=== PATIENT | female | born 1960 ===

== ENCOUNTER 2019-10-06 21:58 | Emergency (ER) | payer OTHER ==
[2019-10-06] MEDS ORDERED: Lidocaine 1% 20 ML MDV ONE (22:07)
--- NOTE | 2019-10-06 22:45 | RAD ---
RIGHT HAND THREE VIEWS RIGHT WRIST THREE VIEWS: 10/06/19 HISTORY: Fall, right hand and wrist pain. FINDINGS/IMPRESSION: No acute fracture or dislocation is seen. If symptoms are not improved, follow-up exam with additional scaphoid views should be obtained in 7- 10 days. POS: OFF
[2019-10-06] MEDS ORDERED: Bacitracin 1 PK ONE (22:59)
[2019-10-06] MEDS ORDERED: Adacel (T-DAP) 0.5 ML SYRINGE ONE (23:10)
== END 2019-10-06 23:32 | disposition home or self-care (01) ==
LOC: SCSER 21:58
DX: S61.411A Laceration without foreign body of right hand, initial encounter (principal); Z23 Encounter for immunization; W18.30XA Fall on same level, unspecified, initial encounter
CPT/HCPCS: 12001; 90471; 90715; J2001